=== PATIENT | female | born 1975 | race Caucasian/White ===

== ENCOUNTER 2024-08-22 13:59 | Emergency (ER) | payer OTHER, SELFPAY ==
[2024-08-22] MEDS ORDERED: Prochlorperazine 10 MG/2 ML VIAL ONE (15:04)
[2024-08-22] MEDS ORDERED: diphenhydrAMINE 50 MG/ML VIAL ONE (15:04)
[2024-08-22 15:33] LABS: #Basophils 0.05 10x3/uL (0.0-0.2); #Eosinophils 0.13 10x3/uL (0.0-0.5); #Monocytes 0.35 10x3/uL (0.0-1.1); #Neutrophils 3.71 10x3/uL (1.5-8.4); %Basophils 0.9 % (0.0-2.0); %Eosinophils 2.4 % (0.0-6.0); %Lymphocytes 22.7 % (18.0-47.0); %Monocytes 6.4 % (0.0-10.0); %Neutrophils 67.2 % (40.0-75.0); Hematocrit 36.8 % (34.9-44.5); Hemoglobin 12.3 g/dL (12.0-15.5); Mean Corpuscular HGB CONC 33.4 g/dL (32.0-36.0); Mean Corpuscular Hemoglobin 30.5 pg (27.0-33.0); Mean Corpuscular Volume 91.3 fL (81.6-98.3); Mean Platelet Volume 10.2 fL (7.4-10.4); Platelet Count 252 10x3/uL (150-450); RBC Distribution Width 12.3 % (11.5-14.5); Red Blood Cell (RBC) Count 4.03 10x6/uL (3.90-5.03); White Blood Cell (WBC) Count 5.51 10x3/uL (3.5-10.5)
[2024-08-22 16:03] LABS: ALT (SGPT) 23 U/L (Less than 34); AST (SGOT) 23 U/L (11-34); Alkaline Phosphatase 31 U/L (40-110); Anion Gap 13 mmol/L (10-20); BUN (Urea Nitrogen) 9 mg/dL (7.0-18.7); Bilirubin, Total 0.5 mg/dL (0.3-1.2); Calc. Creatinine Clearance 0 mL/min (70-130); Calcium 8.9 mg/dL (7.8-10.44); Carbon Dioxide 23 mmol/L (22-29); Chloride 110 mmol/L (98-107); Estimated GFR 103; Globulin 2.7 g/dL (2.4-3.5); Glucose 103 mg/dL (70-105); PTT 27.8 sec (22.0-33.0); Potassium 3.7 mmol/L (3.5-5.1); Protein, Total 6.7 g/dL (6.0-8.3); Prothrombin Time 11.2 sec (9.5-12.1); Sodium 142 mmol/L (136-145)
== END 2024-08-22 16:25 | disposition home or self-care (01) ==
LOC: CSHERS 13:59
DX: G43.909 Migraine, unspecified, not intractable, without status migrainosus (principal)
CPT/HCPCS: 36415; 70450; 80053; 83735; 85025; 85610; 85730; 96374; 96375; J0780; J1200